=== PATIENT | female | born 1955 | race Caucasian/White ===

== ENCOUNTER 2024-10-11 17:58 | Inpatient (IN) | payer MEDICARE, OTHER ==
[~2024-10-11] VITALS: Ht 165.1 cm; Wt 86.6 kg
[2024-10-11] MEDS ORDERED: ENTE0.5T PO (18:13)
[2024-10-11] MEDS ORDERED: INSU100I24 SQ (18:13)
[2024-10-11] MEDS ORDERED: CHOL500062 PO (18:13)
[2024-10-11] MEDS ORDERED: MORP30TA59 PO (18:13)
[2024-10-11] MEDS ORDERED: ONDA4TAB11 PO (18:13)
[2024-10-11] MEDS ORDERED: FOLI0.8T2 PO (18:13)
[2024-10-11] MEDS ORDERED: LIDO30AD10 TD (18:13)
[2024-10-11] MEDS ORDERED: LEVO100T10 PO (18:13)
[2024-10-11] MEDS ORDERED: OMEP20CA15 PO (18:13)
[2024-10-11] MEDS ORDERED: FURO-151 PO (18:13)
[2024-10-11] MEDS ORDERED: FLUT1DIS27 IH (18:13)
[2024-10-11] MEDS ORDERED: ALPR0.5T8 PO (18:13)
[2024-10-11] MEDS ORDERED: OMEG100019 PO (18:13)
[2024-10-11] MEDS ORDERED: GABA300C PO (18:13)
[2024-10-11] MEDS ORDERED: INSU100V39 SQ (18:13)
[2024-10-11] MEDS ORDERED: TACR1CAP2 PO (18:14)
[2024-10-11 18:34] LABS: BASOPHILS % (AUTO) 0.2 % (0.0-2.0); EOSINOPHILS # (AUTO) 0.1 K/uL (0.0-0.7); EOSINOPHILS % (AUTO) 0.8 % (0.0-7.0); HEMATOCRIT 47.8 % (31.2-41.9); HEMOGLOBIN 16.2 g/dL (10.9-14.3); LYMPHOCYTES # (AUTO) 0.6 K/uL (0.8-4.8); LYMPHOCYTES % (AUTO) 8.7 % (20.5-51.5); MEAN CORPUSCULAR HEMOGLOBIN 27.3 uug (24.7-32.8); MEAN CORPUSCULAR HGB CONC 34 g/dL (32.3-35.6); MEAN CORPUSCULAR VOLUME 80.7 fL (75.5-95.3); MONOCYTES # (AUTO) 0.5 K/uL (0.1-1.30); MONOCYTES % (AUTO) 6.5 % (0.0-11.0); NEUTROPHILS # (AUTO) 6.2 K/uL (1.8-8.9); NEUTROPHILS % (AUTO) 83.8 % (38.5-71.5); PLATELET COUNT (AUTO) 161 K/uL (179-408); RED BLOOD CELL COUNT(AUTO) 5.92 MIL/uL (3.63-4.92); RED CELL DISTRIBUTION WIDTH 14.4 % (12.3-17.7); WHITE BLOOD COUNT (AUTO) 7.4 K/uL (3.8-11.8)
[2024-10-11 18:40] LABS: DIFFERENTIAL COMMENT 1
[2024-10-11 18:43] LABS: AMMONIA < 10 umol/L (11-32); CARBON DIOXIDE 30 mmol/L (21-32); CHLORIDE 101 mmol/L (98-107); CREATININE 0.9 mg/dL (0.6-1.3); GLUCOSE 180 mg/dL (74-106); POTASSIUM 3.8 mmol/L (3.5-5.1); SODIUM SERUM 142 mmol/L (136-145); UREA NITROGEN, BLOOD 12 mg/dL (7-18)
[2024-10-11 18:46] LABS: ACETAMINOPHEN < 2.0 ug/mL (10-30)
[2024-10-11 18:52] LABS: ALANINE AMINOTRANSFERASE 36 U/L (14-59); ALBUMIN 4.1 g/dL (3.4-5.0); ALKALINE PHOSPHATASE 90 U/L (50-136); ASPARTATE AMINOTRANSFERASE 21 U/L (15-37); BILIRUBIN,DIRECT 0.1 mg/dL (0.0-0.2); BILIRUBIN,TOTAL 0.5 mg/dL (0.2-1.0); TOTAL PROTEIN, SERUM 7.8 g/dL (6.4-8.2)
[2024-10-11 19:12] LABS: ETHANOL < 3 MG/DL (0-10)
[2024-10-11] MEDS ORDERED: MORPHINE SULFATE IR 30 MG TABLET PO PRN (19:30)
[2024-10-11 22:45] VITALS: BP 179/88; TEMP 97.8; O2SAT 96
[2024-10-11] MEDS ORDERED: TEMAZEPAM 7.5 MG CAPSULE PO PRN (23:00)
[2024-10-11] MEDS ORDERED: MAG HYDROX/AL HYDROX/SIMETH 30 ML LIQUID UDC PO PRN (23:00)
[2024-10-11] MEDS ORDERED: MAGNESIUM HYDROXIDE 30 ML LIQUID UDC PO PRN (23:00)
[2024-10-12] MEDS: ACETAMINOPHEN 325 MG TABLET PO PRN (00:38)
[2024-10-12] MEDS: CLONAZEPAM 0.5 MG TABLET PO PRN ×2 (01:27→17:52)
[2024-10-12] MEDS ORDERED: INSU100I24 SQ (06:10)
[2024-10-12] MEDS ORDERED: INSU100I28 SQ (06:10)
[2024-10-12] MEDS ORDERED: FLUT12AE15 IH (06:14)
[2024-10-12] MEDS ORDERED: PROM5SYR PO (06:14)
[2024-10-12] MEDS ORDERED: PRAV10TA40 PO (06:14)
[2024-10-12] MEDS ORDERED: LIDO30AD10 TP (06:14)
[2024-10-12 07:47] VITALS: BP 138/78; TEMP 98.2; O2SAT 97
[2024-10-12] MEDS: diphenhydrAMINE 50 MG/1 ML VIAL IM STA (09:14)
[2024-10-12] MEDS: HALOPERIDOL LACTATE 5 MG/1 ML VIAL IM STA (09:14)
[2024-10-12] MEDS ORDERED: LIDOCAINE 5% PATCH TD PRN (10:00)
[2024-10-12] MEDS ORDERED: ONDANSETRON ODT 4 MG TAB.RAPDIS SL PRN (10:00)
[2024-10-12] MEDS ORDERED: MORPHINE SULFATE SR 30 MG TABLET.SA PO PRN (10:00)
[2024-10-12] MEDS ORDERED: DEXTROSE 50% 50 ML DISP.SYRIN IV PRN (10:15)
[2024-10-12] MEDS ORDERED: FLUTICASONE/VILANTEROL 1 EACH BLST.W.DEV INH SCH (10:59)
[2024-10-12] MEDS: FOLIC ACID/VITAMIN B COMP W-C TABLET PO SCH (11:00)
[2024-10-12] MEDS ORDERED: CHOL200059 PO (11:04)
[2024-10-12] MEDS ORDERED: TACR1CAP2 PO (11:04)
[2024-10-12] MEDS: BLOOD SUGAR DIAGNOSTIC 1 EACH STRIP VI SCH (11:30)
[2024-10-12] MEDS ORDERED: MORP15TA60 PO (11:31)
[2024-10-12] MEDS: FUROSEMIDE 40 MG TABLET PO SCH (11:32)
[2024-10-12 16:00] VITALS: BP 158/78; TEMP 97.6; O2SAT 97
[2024-10-12] MEDS: GABAPENTIN 300 MG CAPSULE PO SCH (16:25)
[2024-10-12] MEDS ORDERED: GABAPENTIN 300 MG CAPSULE PO SCH (17:00)
[2024-10-12] MEDS: TACROLIMUS ANHYDROUS 0.5 MG CAPSULE PO SCH (17:52)
[2024-10-12] MEDS ORDERED: Medication Not On Formulary EA (Pravastatin Sodium 1 TAB) PO SCH (18:00)
[2024-10-12] MEDS ORDERED: TACROLIMUS ANHYDROUS 0.5 MG CAPSULE PO SCH (18:00)
[2024-10-12] MEDS: TRESIBA SQ SCH (21:00)
[2024-10-12] MEDS: TEMAZEPAM 7.5 MG CAPSULE PO SCH (21:00)
[2024-10-12] MEDS: [UNRECOGNIZED DRUG - OTHER] SQ SCH (21:00)
[2024-10-12] MEDS ORDERED: ENTECAVIR 0.5 MG PO SCH (21:00)
[2024-10-12] MEDS: ENTECAVIR 0.5 MG PO SCH (21:00)
[2024-10-12] MEDS: ATORVASTATIN 10 MG TABLET PO SCH (21:00)
[2024-10-12 21:16] VITALS: BP 152/74; TEMP 98; O2SAT 72
[2024-10-13] MEDS: MORPHINE SULFATE SR 15 MG TABLET.SA PO PRN (00:38)
[2024-10-13] MEDS: OMEPRAZOLE 20 MG PO SCH (06:30)
[2024-10-13] MEDS: LEVOTHYROXINE 100 MCG PO SCH (06:30)
[2024-10-13] MEDS ORDERED: PANTOPRAZOLE SODIUM 40 MG TABLET.DR PO SCH (07:00)
[2024-10-13] MEDS ORDERED: LEVOTHYROXINE SODIUM 100 MCG TABLET PO SCH (07:00)
[2024-10-13 08:03] VITALS: BP 159/88; TEMP 98; O2SAT 98
[2024-10-13] MEDS: TACROLIMUS ANHYDROUS 0.5 MG CAPSULE PO SCH (08:24)
[2024-10-13] MEDS: CHOLECALCIFEROL 1,000 UNIT TABLET PO SCH (08:25)
[2024-10-13] MEDS: ARIPIPRAZOLE 5 MG TABLET PO SCH (08:25)
[2024-10-13] MEDS: INSULIN REGULAR, HUMAN 1000 UNIT/10 ML VIAL SQ PRN (08:26)
[2024-10-13] MEDS ORDERED: Medication Not On Formulary EA (Omeprazole 20 MG) PO SCH (09:00)
[2024-10-13] MEDS ORDERED: Medication Not On Formulary EA (Cholecalciferol (Vitamin D3) (Vitamin D3) 1 TAB) PO SCH (09:00)
[2024-10-13] MEDS ORDERED: FLUTICASONE/SALMETEROL 100/50 1 INH DISK.W.DEV IH SCH (09:00)
[2024-10-13] MEDS ORDERED: TACROLIMUS ANHYDROUS 0.5 MG CAPSULE PO SCH (09:00)
[2024-10-13] MEDS ORDERED: CHOLECALCIFEROL 1,000 UNIT TABLET PO SCH (09:00)
[2024-10-13] MEDS: SERTRALINE HCL 50 MG TABLET PO SCH (10:17)
[2024-10-13 19:46] VITALS: BP 173/91; TEMP 98.1; O2SAT 96
[2024-10-13] MEDS: ENTECAVIR 0.5 MG PO SCH (20:34)
[2024-10-14 19:47] VITALS: BP 127/93; TEMP 98.1; O2SAT 96
[2024-10-14] MEDS: ARIPIPRAZOLE 5 MG TABLET PO SCH (20:24)
[2024-10-15 07:38] VITALS: BP 169/86; TEMP 97.6; O2SAT 97
[2024-10-15] MEDS ORDERED: MORP15TA PO (14:07)
[2024-10-15] MEDS: MORPHINE SULFATE IR 30 MG TABLET PO PRN (16:53)
[2024-10-15 19:30] VITALS: BP 179/84; TEMP 97.6; O2SAT 97
[2024-10-15] MEDS: MORPHINE SULFATE SR 15 MG TABLET.SA PO SCH (21:22)
[2024-10-16 07:51] VITALS: BP 181/82; TEMP 97.4; O2SAT 96
[2024-10-16] MEDS: AMLODIPINE 5 MG TABLET PO SCH (14:07)
[2024-10-16 15:00] VITALS: BP 151/86; TEMP 98.2; O2SAT 95
[2024-10-16 20:00] VITALS: BP 152/89; TEMP 98.9; O2SAT 95
[2024-10-17 08:00] VITALS: BP 151/69; TEMP 98.1; O2SAT 100
[2024-10-17] MEDS ORDERED: ARIPIPRAZOLE 5 MG TABLET PO SCH (09:00)
[2024-10-17 09:18] VITALS: BP 151/63; TEMP 98.1; O2SAT 100
[2024-10-17] MEDS: ARIPIPRAZOLE 2 MG TABLET PO SCH (16:14)
[2024-10-17 16:20] VITALS: BP 158/80; TEMP 98.2; O2SAT 100
[2024-10-17 20:00] VITALS: BP 152/72; TEMP 98.2; O2SAT 95
[2024-10-18 08:03] VITALS: BP 154/83; TEMP 98; O2SAT 96
[2024-10-18] MEDS: SALMETEROL IH PRN (09:31)
[2024-10-18] MEDS: FLUTICASONE IH PRN (09:31)
[2024-10-18] MEDS: AMLODIPINE 5 MG TABLET PO ONE (11:15)
[2024-10-18 16:01] VITALS: BP 155/85; TEMP 98; O2SAT 98
[2024-10-18 20:00] VITALS: BP 186/85; TEMP 98.1; O2SAT 97
[2024-10-18 20:35] VITALS: BP 148/79
[2024-10-19 08:03] VITALS: BP 132/65; TEMP 97.4
[2024-10-19] MEDS: AMLODIPINE 10 MG TABLET PO SCH (08:48)
[2024-10-19] MEDS ORDERED: AMLODIPINE 5 MG TABLET PO SCH (09:00)
[2024-10-19 16:08] VITALS: BP 143/61; TEMP 97.8
[2024-10-19 19:57] VITALS: BP 128/60; TEMP 97.9; O2SAT 100
[2024-10-20 08:03] VITALS: BP 159/69; TEMP 98.2; O2SAT 100
[2024-10-20 16:08] VITALS: BP 118/72; TEMP 97.8; O2SAT 100
[2024-10-20 19:40] VITALS: BP 168/72; TEMP 98.1; O2SAT 98
[2024-10-21 07:30] VITALS: BP 168/92; TEMP 98; O2SAT 98
[2024-10-21] MEDS: LISINOPRIL 5 MG TABLET PO SCH (08:23)
[2024-10-21 15:17] VITALS: BP 144/75; TEMP 98; O2SAT 98
[2024-10-21 20:00] VITALS: BP 131/70; TEMP 97.7; O2SAT 97
[2024-10-22 07:55] VITALS: BP 166/74; TEMP 98.2; O2SAT 96
[2024-10-22 15:02] VITALS: BP 147/69; TEMP 98.2; O2SAT 96
[2024-10-22 20:00] VITALS: BP 140/60; TEMP 98.2; O2SAT 95
[2024-10-23 08:08] VITALS: BP 146/67; TEMP 98.4; O2SAT 96
[2024-10-23 08:18] VITALS: BP 146/67
== END 2024-10-23 11:30 | disposition home or self-care (01) | DRG 885 ==
LOC: ER 17:59 → GPS 22:23
PROVIDERS: ADMIT Psychiatry & Neurology Psychiatry
DX: F29 Unspecified psychosis not due to a substance or known physiological condition (principal); Z94.4 Liver transplant status; G89.4 Chronic pain syndrome; G47.30 Sleep apnea, unspecified; E66.01 Morbid (severe) obesity due to excess calories; Z68.31 Body mass index [BMI] 31.0-31.9, adult; E78.5 Hyperlipidemia, unspecified; F31.2 Bipolar disorder, current episode manic severe with psychotic features; K21.9 Gastro-esophageal reflux disease without esophagitis; F41.1 Generalized anxiety disorder; F43.10 Post-traumatic stress disorder, unspecified; I10 Essential (primary) hypertension; E03.9 Hypothyroidism, unspecified; E11.40 Type 2 diabetes mellitus with diabetic neuropathy, unspecified; Z85.05 Personal history of malignant neoplasm of liver; Z90.49 Acquired absence of other specified parts of digestive tract; Z90.710 Acquired absence of both cervix and uterus; Z86.19 Personal history of other infectious and parasitic diseases; Z87.891 Personal history of nicotine dependence; Z79.899 Other long term (current) drug therapy; Z88.5 Allergy status to narcotic agent; Z88.8 Allergy status to other drugs, medicaments and biological substances; Z91.011 Allergy to milk products; Z79.4 Long term (current) use of insulin
CPT/HCPCS: 36415; 70450; 71045; 84484; 85025; 85730; G0480; J1200; J1630; J1815; J7507